=== PATIENT | female | born 1985 | race Caucasian/White ===

== ENCOUNTER → 2021-06-26 11:00 | Outpatient (CLI) | payer OTHER, SELFPAY ==
[2021-06-26 12:50] LABS: COVID19 -Nasal RAPID Negative (Negative)
== END ==
PROVIDERS: Referring Provider Nurse Practitioner; Visit Provider Nurse Practitioner
DX: Z20.822 Contact with and (suspected) exposure to COVID-19 (principal)
CPT/HCPCS: 87635

== ENCOUNTER → 2021-06-29 13:31 | Outpatient (CLI) | payer OTHER, SELFPAY ==
--- NOTE | 2021-06-29 | DI.ECHO.S_ITS ---
[facility] +---------+ [facility] +---------+ : : [address] : : : : [id number] : : : : Phone: [phone]+ Echocardiogram Report + + :Name: STACI LANG Study Date: 06/29/2021 Height: 66 in : :[facility] ReadingLocation: Weight: 210 lb : : Gender: Female BSA: 2.0 m2 : :: 1985 Age: 36 yrs BP: 138/100 mmHg: :Reason For Study: VENTRICULAR PREMATURE DEPLOARIZATION : :Ordering Physician: JEWEL, : :MILA Performed By: Bhargavi Sanders : :Referring: MILA THORNTON : + + Interpretation Summary 1) Normal left ventricular thickness, size, wall motion, and systolic function (EF 55-60%). 2) Normal right ventricular size and function. 3) No significant valvular abnormalities. 4) No prior Echo available for comparison. Procedure: A two-dimensional transthoracic echocardiogram with color flow and Doppler was performed. The study quality was technically adequate. There is no prior echocardiogram noted for this patient. The patient had occasional PVCs during the exam. The heart rate ranged between 60-86 bpm during the study. Left Ventricle: The left ventricle is normal in size and wall thickness. The ejection fraction is estimated to be 55-60%. Left ventricular systolic function appears normal without focal wall motion abnormalities. Right Ventricle: The right ventricle is normal in size and function. Atria: The left atrial size is normal. Right atrial size is normal. There is no Doppler evidence for an interatrial shunt. Mitral Valve: The mitral valve is normal in structure and function. There is trace mitral regurgitation. Aortic Valve: The aortic valve is trileaflet. The aortic valve opens well. There is no aortic valve stenosis. No aortic regurgitation is present. Tricuspid Valve: The tricuspid valve is normal in structure and function. There is mild tricuspid regurgitation. Pulmonary artery pressures cannot be estimated because of the lack of a measurable TR jet velocity but the IVC suggests a CVP of around 3 mmHg. Pulmonic Valve: The pulmonic valve leaflets are thin and pliable; valve motion is normal. There is mild pulmonic regurgitation. Great Vessels: The aortic root is normal size. The ascending aorta could not be visualized. The IVC is of normal diameter and collapses greater than 50% with a sniff. This suggests a low right atrial pressure of 3 mm Hg. Pericardium/ Pleura There is no pericardial effusion. There is no pleural effusion. MMode/2D Measurements & Calculations LVIDd: 4.7 cm LVOT diam: 2.1 cm LVIDs: 3.3 cm Ao root diam: 2.8 cm FS: 29.4 % Ao Arch Diam (Prox Trans): 2.9 cm IVSd: 0.97 cm LVPWd: 0.90 cm LV hart. diameter/BSA (cm/m^2): 2.3 LV sys. diameter/BSA (cm/m^2): 1.6 LA A2 area: 16.1 cm2 RA long axis: 4.9 cm LA A4 area: 21.2 cm2 RA area: 16.1 cm2 LA length (vol): 5.6 cm RA vol: 45.1 ml LA vol: 52.0 ml RA : 22.1 ml/m2 LA vol index: 25.5 ml/m2 IVC diam: 2.0 cm RVD1 (basal): 3.2 cm TAPSE: 1.8 cm Doppler Measurements & Calculations Ao V2 max: 122.1 cm/sec LVOT Max Bryan: 82.4 cm/sec Ao V2 mean: 80.7 cm/sec LV V1 max P.7 mmHg Ao max P.0 mmHg LV V1 VTI: 17.1 cm Ao mean P.0 mmHg SIVA(I,D): 2.5 cm2 Ao V2 VTI: 24.6 cm SIVA(V,D): 2.4 cm2 sev ratio: 0.70 SIVA indexed to BSA (cm^2/m^2): 1.2 MV E max bryan: 69.3 cm/sec PA V2 max: 100.3 cm/sec MV A max bryan: 56.0 cm/sec PA V2 mean: 67.7 cm/sec MV E/A: 1.2 PA mean P.1 mmHg Med Peak E' Bryan: 5.5 cm/sec PA pr(Accel): 24.2 mmHg E/E' med: 12.6 Lat Peak E' Bryan: 10.0 cm/sec E/E' lat: 6.9 E/e' average: 9.8 MV dec time: 0.19 sec SV(LVOT): 60.3 ml Reading Physician:03:14 PM
--- NOTE | 2021-06-29 | DI.NM.S_ITS ---
PROCEDURE: NM EXERCISE TREADMILL NON NUC COMPARISON: None. INDICATIONS: Ventricular premature depolarization FINDINGS: Resting ECG sinus rhythm, PVCs. Kalin protocol 8 minutes, 0 seconds. Peak heart rate 190. Maximum blood pressure 160/90. 10.1 METS. ULICES +14%. Stress ECG sinus tachycardia, no significant ST segment changes, no ectopy. 3 out of 10 chest pain at peak exercise decreased to 0 out of 10 in early recovery. IMPRESSION: 1. No evidence of exercise-induced ischemia or arrhythmia by ECG criteria. 2. Resting PVCs resolved with exercise. 3. Good exercise capacity. 4. Normal blood pressure response to exercise. Dictated by: Whit Nelson D.O. on 06/30/2021 at 13:10 Approved by: Whit Nelson M.D. on 06/30/2021 at 13:16
== END ==
PROVIDERS: Referring Provider Internal Medicine Cardiovascular Disease; Visit Provider Internal Medicine Cardiovascular Disease
DX: I37.1 Nonrheumatic pulmonary valve insufficiency (principal); I07.1 Rheumatic tricuspid insufficiency; I49.3 Ventricular premature depolarization; R07.9 Chest pain, unspecified
CPT/HCPCS: 93017; 93306